=== PATIENT | male | born 2000 | race African-American/Black ===

== ENCOUNTER 2024-06-19 14:15 | Emergency (ER) | payer OTHER, SELFPAY ==
--- NOTE | ~2024-06-19 | XR_ITS ---
EXAM: XR foot LT min 3V DATE: 06/19/2024 14:50 HISTORY: injury playing basketball, lateral foot pain . COMPARISON: None available. FINDINGS: Normal mineralization. Nondisplaced, likely incomplete proximal left fifth metatarsal frac ture, 2.8 cm to the proximal tuberosity, without clear intermetatarsal joint involvement. No lytic or blastic lesion. Joint spaces are maintained. No erosion or periosteal change. Soft tissues within no rmal limits. IMPRESSION: Nondisplaced proximal left metatarsal fracture, likely representing a fifth metatarsal st ress fracture. Reviewed, dictated and finalized at location [facility] IMPRESSION: Nondisplaced proximal left metatarsal fracture, likely representing a fifth metatarsal stress fracture.
[2024-06-19 14:26] VITALS: BP 128/75; PULSE 68; RESP 16; TEMP 36.5; O2SAT 100
--- NOTE | 2024-06-19 14:41 | ED.LOWEXIN ---
HPI - Extremity Injury (Lower) General Chief Complaint: Extremity Injury, Lower Stated Complaint: Injured Left Foot Time Seen by Provider: 06/19/24 14:40 Source: patient, RN notes reviewed and old records reviewed Mode of arrival: ambulatory (placed in wheelchair on arrival) Limitations: no limitations History of Present Illness HPI Narrative: 24 year old male presents to [facility] care with complaints of left lateral foot pain after injury last night when he went up for a rebound and came down and went to floor. He reports that he is unsure if he twisted his foot, came down wrong or if someone stepped on him.Patient is unable to tolerate full weight bearing to his left foot, no acute swelling noted of left foot, denies any tingling or numbness to left foot or toes. MD complaint: foot injury (left) Onset (ago): day(s) (last night) Injury: Left: foot (unsure of exact mechanism) Place: school ([employer]) Severity scale (1-10): 3 Treatments prior to arrival: cold therapy Related Data Home Medications Medication Instructions Recorded Confirmed No Home Medications 06/19/24 06/19/24 Allergies Allergy/AdvReac Type Severity Reaction Status Date / Time No Known Allergies Allergy Verified 06/19/24 14:32 Review of Systems Review of Systems: CONSTITUTIONAL: Denies fever, chills, or sweats. EYES: Denies visual changes, redness, or discharge. ENT: Denies rhinorrhea, congestion, sore throat, or otalgia. CARDIOVASCULAR: Denies chest pain, palpitations, or edema. RESPIRATORY: Denies cough or dyspnea. GASTROINTESTINAL: Denies abdominal pain, nausea, vomiting, or diarrhea. GENITOURINARY: Denies dysuria or hematuria. SKIN: Denies rash or itching. MUSCULOSKELETAL: Denies back pain, positive for left lateral foot pain, or myalgia. NEUROLOGIC: Denies headache, numbness, or weakness. PSYCHIATRIC: Denies anxiety or depression. All systems reviewed & are unremarkable except as noted in HPI and below [facility] Social History Social History (Updated 06/20/24 @ 15:59 by Katy Monique NP) Smoking status: Never smoker Alcohol intake: current Alcohol use details: social alcohol Substance use type: does not use Occupation/Education: student Gender identity (if verbalized by the patient): Male Comments At time of signature, agree with nursing past medical, surgical, social and family history. There is no relevant family history pertinent to the presenting complaint Exam Narrative: GENERAL: Well-appearing, well-nourished, and in no acute distress. HEAD: Normocephalic, atraumatic. EYES: PERRLA and EOMI. ENT: Nares clear, no rhinorrhea or epistaxis. Mucous membranes moist. NECK: Supple. no lymphadenopathy CHEST: Clear to auscultation. No respiratory distress.SAO2 100% on room air HEART: Regular rate and rhythm. No murmur heard. Normal peripheral pulses. ABDOMEN: Soft, nontender, nondistended, normal active bowel sounds. EXTREMITIES: Normal range of motion. No acute edema. Patient reports pain to the left lateral foot proximal metatarsal region anterior and plantar aspect of his foot. Patient has strong pedal pulse to left foot, no acute swelling noted. Patient is unable to bear full weight to left foot without pain. SKIN: Warm, dry, no rash. NEURO: No focal deficits. Alert and oriented x3. Course Course Emergency Course: Patient is aware of diagnosis, understands and agrees to treatment plan.? Anticipatory guidance given.? Patient agrees to follow-up as directed and is aware of reasons to seek care at the emergency department. Portions of this record may have been created with voice recognition software Level of Care: Express Care Visit Vital Signs Vital signs: Vital Signs Temperature 36.5 C 06/19/24 14:26 Pulse Rate 68 06/19/24 14:26 Respiratory Rate 16 06/19/24 14:26 Blood Pressure 128/75 06/19/24 14:26 Pulse Oximetry 100 06/19/24 14:26 Temperature 36.5 C 06/19/24 14:26 Pulse Rate 68 06/19/24 14:26 Respiratory Rate 16 06/19/24 14:26 Blood Pressure 128/75 06/19/24 14:26 Pulse Oximetry 100 06/19/24 14:26 Reviewed MDM - Extremity Injury (Lower) MDM Narrative Medical decision making narrative: crutches given to patient and instructed on non weight bearing status with patient able to demonstrate satisfactorily. Cardiovascular Surgical Tech from [employer] here with patient states they have orthopedic boots in trainers clinic and patient will be further followed by agency trainer and team orthopedic doctor., no splinting performed of stress fracture in left foot.. Differential Diagnosis Differential diagnosis: Likely other (left lateral foot pain, contusion of left foot,5th proximal metarsal foot fracture, stress fracture left foot) Medical Records Attestation: I reviewed the patient's medical records. Imaging Data Attestation: I personally reviewed and interpreted this imaging study as follows: My impression: nondisplaced left proximal metatarsal fracture.representing left 5th metatarsal stress fracture Radiologist's impression: [address] [place] [address] XRay Report Signed Patient: Rm Fuchs : 2000 MR#: [id number] Age: 24 Acct:[id number] Loc: [id number] ADM Date: 06/19/24Attending Dr: Ordering Physician: Katy Monique APRN Date of Service: 06/19/24 Procedure(s): XR foot LT min 3V Accession Number(s): [id number] cc: ReynoldStan Pacheco; Katy Monique APRN~ EXAM: XR foot LT min 3V DATE: 06/19/2024 14:50 HISTORY: injury playing basketball, lateral foot pain . COMPARISON: None available. FINDINGS: Normal mineralization. Nondisplaced, likely incomplete proximal left fifth metatarsal fracture, 2.8 cm to the proximal tuberosity, without clear intermetatarsal joint involvement. No lytic or blastic lesion. Joint spaces are maintained. No erosion or periosteal change. Soft tissues within normal limits. IMPRESSION: Nondisplaced proximal left metatarsal fracture, likely representing a fifth metatarsal stress fracture. Reviewed, dictated and finalized at location [facility] Dictated By: Deny Hope MD 06/19/24 1510 Signed By: <Electronically signed by Deny Hope MD in OV> Critical Care Time Critical Care Time Critical Care Time: No Discharge Plan Discharge Clinical Impression: Metatarsal stress fracture of left foot Qualifiers: Encounter type: initial encounter Qualified Code(s): M84.375A - Stress fracture, left foot, initial encounter for fracture Patient Disposition: Home, Self-Care Condition: Stable Instructions: Antibiotic Form, Metatarsalgia (DC) Additional Instructions: Crutches as directed [id number] Tylenol for lesser pain Ibuprofen regularly for the next 2-3 days for the inflammation Follow-up with orthopedic surgeon for [employer] Follow-up with PCP if further problems or concerns Ice to the area 20-30 minutes 4-6 times a day Elevate above heart If your symptoms persist, change or worsen significantly before you can contact your personal physician then please, without delay, go to the emergency department for further evaluation. Follow-up with PCP in 7-10 days or sooner if needed Follow up with PCP soon in regards to your blood pressure which is elevated above threshold for referral. Blood pressure above 120/80 may indicate pre-hypertension. and minimal elevation 128/ 75 Prescriptions: No Action No Home Medications Follow-up/Referrals: Reynold,Stan Pacheco DO [Primary Care Provider] - Time of Disposition: 15:35 Quality Nic Coma Scale Eyes: Open Verbal: Oriented and Alert Motor: Follows Commands Nic Coma Total Score: 15
== END 2024-06-19 15:40 | disposition home or self-care (01) ==
PROVIDERS: Emergency Provider Registered Nurse; PCP Family Medicine Sports Medicine
DX: M84.375A Stress fracture, left foot, initial encounter for fracture (principal); X58.XXXA Exposure to other specified factors, initial encounter; Y93.67 Activity, basketball
CPT/HCPCS: 73630; 99213; G0463